=== PATIENT | female | born 1995 | race Caucasian/White ===

== ENCOUNTER 2024-04-26 15:07 | Emergency (ER) | payer SELFPAY ==
[~2024-04-26] VITALS: Ht 165.1 cm; Wt 73.0 kg
[2024-04-26 15:13] VITALS: BP 142/87; RESP 18; TEMP 98.6; O2SAT 97
[2024-04-26 15:17] VITALS: PULSE 75
[2024-04-26] MEDS: BACITRACIN 14GM TUBE TOP ONE (15:45)
[2024-04-26] MEDS ORDERED: BO1 TP (15:50)
== END 2024-04-26 16:00 | disposition home or self-care (01) ==
LOC: ER 15:07
DX: T24.012A Burn of unspecified degree of left thigh, initial encounter (principal); T24.011A Burn of unspecified degree of right thigh, initial encounter; X58.XXXA Exposure to other specified factors, initial encounter; Y93.89 Activity, other specified; Y92.89 Other specified places as the place of occurrence of the external cause; Y99.8 Other external cause status
CPT/HCPCS: 99282